=== PATIENT | male | born 1935 | race Caucasian/White ===

== ENCOUNTER 2016-06-30 13:52 | Observation (INO) | payer MEDICARE, OTHER ==
[~2016-06-30] VITALS: Ht 172.7 cm; Wt 78.2 kg
[2016-06-30 19:00] VITALS: BP_SYST 176; BP_SYST 180; RESP 18; TEMP 97.4; Ht 172.7 cm; Wt 78.2 kg
[2016-06-30] MEDS ORDERED: ACETAMINOPHEN 325 MG TAB PO PRN (19:35)
[2016-06-30] MEDS ORDERED: ONDANSETRON 4 MG VIAL IV PUSH PRN (19:35)
[2016-06-30] MEDS ORDERED: ALPRAZOLAM 0.25 MG TAB PO PRN (19:35)
[2016-06-30] MEDS ORDERED: risperiDONE 1 MG TAB PO SCH (21:45)
[2016-06-30] MEDS: METOPROLOL TART 25 MG TAB PO SCH (22:32)
[2016-06-30] MEDS: Ibuprofen 400 MG TAB PO PRN (22:34)
[2016-06-30] MEDS: GLIMEPIRIDE 2 MG TAB PO SCH (22:34)
[2016-06-30] MEDS: GUAIFEN/DM 600/30 TAB PO SCH (22:36)
[2016-06-30 23:34] VITALS: BP_SYST 145; RESP 20
[2016-07-01 00:51] VITALS: BP_SYST 140; RESP 18; TEMP 98
[2016-07-01 02:51] VITALS: BP_SYST 138; RESP 16; TEMP 97.8
[2016-07-01 03:52] VITALS: BP_SYST 147; RESP 22; TEMP 98
[2016-07-01 07:44] VITALS: BP_SYST 121; TEMP 97.9
[2016-07-01 07:45] VITALS: RESP 20
[2016-07-01] MEDS ORDERED: MISSING DOSE XX ONE ×2 (08:10→12:40)
[2016-07-01] MEDS: GUAIFEN/DM 600/30 TAB PO SCH (08:23)
[2016-07-01] MEDS: GLIMEPIRIDE 2 MG TAB PO SCH (08:48)
[2016-07-01] MEDS: METOPROLOL TART 25 MG TAB PO SCH (08:48)
[2016-07-01] MEDS ORDERED: Furosemide 40 MG TAB PO ONE (11:50)
[2016-07-01 12:45] VITALS: BP_SYST 121; RESP 20; TEMP 97.9
[2016-07-01] MEDS: Ibuprofen 400 MG TAB PO PRN (13:05)
== END 2016-07-01 11:47 | disposition home or self-care (01) ==
LOC: ENRESERVDT → ENRESERVTM → ER 13:52 → ENPENDDIS 18:19 → EMR 18:19 → PCU 19:22
PROVIDERS: ADMIT Internal Medicine Nephrology; ATTEND Internal Medicine Nephrology
DX: R55 Syncope and collapse (principal); S16.1XXA Strain of muscle, fascia and tendon at neck level, initial encounter; W18.30XA Fall on same level, unspecified, initial encounter; S23.3XXA Sprain of ligaments of thoracic spine, initial encounter; S33.5XXA Sprain of ligaments of lumbar spine, initial encounter; S00.03XA Contusion of scalp, initial encounter; J44.9 Chronic obstructive pulmonary disease, unspecified; I10 Essential (primary) hypertension; F03.90 Unspecified dementia, unspecified severity, without behavioral disturbance, psychotic disturbance, mood disturbance, and anxiety; Z79.82 Long term (current) use of aspirin; Z79.84 Long term (current) use of oral hypoglycemic drugs
CPT/HCPCS: 36415; 70450; 71020; 72100; 72125; 72170; 80053; 80061; 81001; 82947; 85025; 93005; 97799; 99285; G0378